=== PATIENT | female | born 1945 | race Caucasian/White ===

== ENCOUNTER 2025-02-22 14:30 | Outpatient (CLI) | payer MEDICARE, OTHER | END 2025-02-22 14:31 | disposition home or self-care (01) | LOC: BURRAD 14:30 | PROVIDERS: ATTEND Student in an Organized Health Care Education/Training Program | DX: M51.16 Intervertebral disc disorders with radiculopathy, lumbar region (principal); M51.17 Intervertebral disc disorders with radiculopathy, lumbosacral region; G89.29 Other chronic pain; M47.816 Spondylosis without myelopathy or radiculopathy, lumbar region; M47.814 Spondylosis without myelopathy or radiculopathy, thoracic region; I70.90 Unspecified atherosclerosis; K31.89 Other diseases of stomach and duodenum | CPT/HCPCS: 72100 ==

== ENCOUNTER 2025-03-18 16:08 | Emergency (ER) | payer MEDICARE, OTHER | END 2025-03-18 17:03 | disposition home or self-care (01) | LOC: BURERS 16:08 | DX: S61.412A Laceration without foreign body of left hand, initial encounter (principal); I10 Essential (primary) hypertension; E11.9 Type 2 diabetes mellitus without complications; Z23 Encounter for immunization; W26.9XXA Contact with unspecified sharp object(s), initial encounter | CPT/HCPCS: 90471; 90715; 99282 ==